=== PATIENT | female | born 1995 | race Caucasian/White ===

== ENCOUNTER 2022-03-25 00:07 | Inpatient (IN) | payer SELFPAY, OTHER ==
[2022-03-25] VITALS (47 sets, daily range): BP systolic 89–116; BP diastolic 47–71; PULSE 73–113; RESP 14–17; TEMP 36.2–37.5; O2SAT 96–100; BMI 24.0
--- NOTE | 2022-03-25 01:13 | HP.PCM.OB_ITS ---
HPI - General General Date of Admission: 03/25/22 HPI Narrative LAMONT JOINER, is a 26 F who presents from [facility] with community center coordinator Desiree Lopez following prolonged labor pattern at 37+5. delayed dilation. 6cm since 1900. She is without known complic ations. labs and testings were declined. A positive blood typing. GBS unknown. intact. no vb/lof. arthur q5 minutes, moderate to palpation. increasing intensity since car-ride to hospital. PFSH PFSH Home Medications Evening [place] per pt 03/25/22 [History Last Taken Unknown] calcium per pt 03/25/22 [History Last Taken Unknown] [id number] 1 mg tablet 1 tab PO DAILY 03/25/22 [History Last Taken 03/24/22 08:00] vitamin K per pt 03/25/22 [History Last Taken Unknown] Allergy/AdvReac Type Severity Reaction Status Date / Time No Known Allergies Allergy Verified 03/25/22 01:19 NST FHR Rate Baby A Baseline: 140 Variability:: Moderate Accelerations:: 15 x 15 Decelerations:: None NST Reactive:: Yes FHR Category:: Category I Uterine Activity:: q3-5 minutes x70 seconds ROS Cardiovascular Cardiovascular: Denies abdominal pain, chest pain, diaphoresis, dyspnea, edema or fatigue Respiratory/Chest Respiratory/Chest: Denies change in mental status, chest congestion, chest tightness, cough, shortness of breath at rest, shortness of breath with exertion, breast mass, breast pain, breast skin changes, breast swelling, change in breast shape or nipple discharge Gastrointestinal Gastrointestinal: Denies diarrhea, hemorrhoids, nausea, vomiting or weight changes Genitourinary Genitourinary: Denies change in urinary stream Musculoskeletal Musculoskeletal: Reports none Integumentary Integumentary: Reports none Neurologic Neurologic: Reports none Psychiatric Psychiatric: Reports none Endocrine Endocrinology: Reports none Hematologic/Lymphatic Hematologic/Lymphatic: Reports none Allergic/Immunologic Allergic/Immunologic: Reports none Vital Signs Vital Signs Vital Signs: 03/25/22 00:22 03/25/22 00:22 03/25/22 00:22 Temperature 99.1 F Pulse Rate 87 Blood Pressure BP Systolic BP Diastolic Pulse Ox 97 03/25/22 00:26 03/25/22 00:26 Temperature Pulse Rate 100 Blood Pressure 114/71 BP Systolic 114 BP Diastolic 71 Pulse Ox Physical Exam Const alert, oriented x3 and no apparent distress General Appearance: cooperative, comfortable and well kempt; Negative for in distress Orientation / Consciousness: awake and oriented to person Exam Limitations: no limitations HEENT normocephalic Mouth: oral and palatal mucosa normal Neck full ROM Chest inspection of chest normal Resp normal respiratory effort Effort and Inspection: able to speak in complete sentences and symmetric chest movement Cardio regular rate Peripheral Pulses: pulses 2+ throughout GI normal to inspection, nondistended, normoactive bowel sounds Inspection: gravid appearance of the vagina normal External Female Exam: normal appearance of the urethra; Negative for external lesion OB / External & Speculum: external exam normal Manual OB Exam: estimated gestational size appropriate and presentation cephalic Uterus Palpation: Negative for uterus tender Extremity normal to inspection Skin no rashes or lesions noted Neuro Motor Exam: strength 5/5 throughout and clonus absent Psych Activity / Motor Behavior: appropriate eye contact Speech: normal speech Labs Labs Labs: No Data to Display Assessment & Plan (1) Spontaneous onset of labor: COMMENT: spontaneous labor at 37+5 pt with CPM care, declined testings and labs sp:Herbert PLAN: Plan admit to L&D -pt with +cervical change from [facility]. plan to re-evaluate cervical exam in 2 hour. if no change will augment with pitocin. -offer position changes and comfort techniques -obtain labs Dr. Thomson updated of admission
[2022-03-25] MEDS: Lactated Ringers 1,000 ML 200 ML IV ×2 (01:30→06:11)
[2022-03-25 02:01] LABS: Absolute Lymphocyte Count 1.39 X10^3/uL (0.83-4.51); Absolute Neutrophil Count 7.5 X10^3/uL (2.0-7.7); Basophil# 0.02 X10^3/uL; Basophil% 0.2 % (0-1); Eosinophil# 0.01 X10^3/uL; Eosinophils% 0.1 % (0-5); Hematocrit 36.5 % (37-47); Hemoglobin 12.7 g/dL (12.0-15.0); Lymphocyte # 1.39 X10^3/ul (0.83-4.51); Lymphocyte % 14.4 % (19-41); Mean Corp Hgb Conc 34.8 g/dL (32-36); Mean Corpuscular Hgb 33.2 pg (27.0-32.0); Mean Corpuscular Volume 95.3 fL (81-99); Monocyte# 0.69 X10^3/uL; Monocyte% 7.1 % (0-10); NRBC Flagged by Analyzer 0 % (0-5); Neutrophil # 7.52 X10^3/uL (2.7-7.7); Neutrophil % 77.8 % (47-70); Platelet Count 203 K/mm3 (150-450); RBC Distribution Width CV 13.2 % (11.6-14.6); RBC Distribution Width SD 46.4 fl (35.1-43.9); Red Blood Count 3.83 M/mm3 (4.2-5.4); White Blood Count 9.7 K/mm3 (4.4-11.0)
[2022-03-25 02:52] LABS: Mucous, Urine 0 SEEN /hpf (<or=2+); Red Blood Cells-Urine 0 SEEN /hpf (0-5); Squamous Epithelial Cells - UA 0 SEEN /hpf (5-10)
[2022-03-25] MEDS: Oxytocin 15 Units/NS 250ml 15 UNITS/250 ML IV.SOLN 2 UNITS IV (02:52)
[2022-03-25 02:53] LABS: Color, Urine Yellow (Yellow); Glucose, Dipstick 50 mg/dl (Normal); Ketone-Dipstick 50 mg/dl (Negative); Leukocyte Esterase-Dipstick 25 /ul (Negative); Nitrite-Dipstick Negative (Negative); Occult Blood-Urine 25 /ul (Negative); Protein-Dipstick 30 mg/dl (Negative); Specific Gravity, Urine 1.015 (1.002-1.030); Urine Bilirubin Dipstick Negative (Negative); Urine Clarity Clear (Clear); Urine Urobilinogen Normal (Normal)
[2022-03-25 03:06] LABS: Rubella IgG Reactive (Nonreactive); Syphilis Antibodies Non-reactive
[2022-03-25 03:12] LABS: Amphetamine Urine VISTA NEGATIVE (<1000 ng/mL); Barbiturate Urine VISTA NEGATIVE (< 200 ng/mL); Benzodiazepine Urine VISTA NEGATIVE (< 200 ng/mL); Cocaine Urine VISTA NEGATIVE (< 300 ng/mL); Ecstacy Urine VISTA NEGATIVE (< 500 ng/mL); Methadone Urine VISTA NEGATIVE (< 300 ng/mL); PCP Urine VISTA NEGATIVE (< 25 ng/mL); THC Urine VISTA NEGATIVE (< 50 ng/mL); Vista UDS pH Range 6
[2022-03-25 03:14] LABS: Bacteria RARE /hpf (None Seen); White Blood Cells 0-5 SEEN /hpf (0-5)
[2022-03-25 03:54] LABS: HIV - WCH Non-Reactive (Nonreactive); Hepatitis B Surface Antigen Non-Reactive (Nonreactive); Hepatitis C Antibody Non-Reactive (Nonreactive)
[2022-03-25 04:22] LABS: Group B Strep DNA By PCR Negative (Negative); Internal Control PASS; Probe Check PASS; Specimen Processing Control PASS
[2022-03-25 05:27] LABS: Chlamydia Trachomatis by PCR Negative (Negative); Neisserai gonorrhoeae by PCR Negative (Negative); Probe Check PASS; Sample Adequacy Control PASS; Specimen Processing Control PASS
[2022-03-25 05:46] LABS: ROM Internal Control Test YES-OK TO RESULT pt. (Internal QC); ROM Patient Test POSITIVE (Negative)
[2022-03-25] MEDS: Acetaminophen 500 MG Tablet PO (05:56)
--- NOTE | 2022-03-25 07:22 | DCINST_ITS ---
Discharge Instructions Diet Discharge Diet: No restrictions Activity Discharge Activity: Return to Normal Activity, May Drive, May Shower and May Take a Tub Bath (in 4 weeks) May resume sexual activity in: 6-8 weeks (after seen by OB provider) Weight Bearing Status: Full weight bearing Lifting Restrictions: none Dressing / Incision Call your doctor if you observe: Fever of 101 or Higher, Inability to urinate, Using more than 1 pad per hour (for more than 2 hours in a row or more), Shortness of breath, Dizziness, Chest pain and - (headache not controlled with tylenol, change in vision) Follow Up Care When: in 6 weeks for visit, call the office to make the appointment. If you had elevated blood pressures call the office to be seen within 1 week. Test Results: Test results from this visit will be discussed in further detail at your follow- up appointment, if applicable. Discharge Plan Admission Admit Date/Time: 03/25/22 00:07 Attending Provider: Chloe Valencia Primary Care Provider: Care Physician,Maggi Primary Discharge Orders/Prescriptions Prescriptions: No Action 1 mg Tablet 1 tab PO DAILY Evening [place] calcium vitamin K Referrals / Follow Up: Care Physician,No Primary [Primary Care Provider] - Disposition Disposition (needs filled in before D/C Order can be placed): Home, Self Care
--- NOTE | 2022-03-25 07:30 | EX.PCM.OBRPT ---
Vaginal Delivery Maternal Presentation Maternal Presentation: Active Labor Type of Induction: Pitocin Operative Information Date of Procedure: 03/25/22 Pre-Operative Diagnosis: Post-Operative Diagnosis: Surgery / Procedure Performed: Spontaneous Vaginal Delivery Estimated Blood Loss: 250 Time of Delivery: 07:06 Findings Description of Procedure: Patient began pushing and delivered the head in the ULYSSES presentation. The head was delivered atraumatically. The anterior and posterior shoulders delivered without complication followed by the rest of the and the infant was placed on the maternal abdomen. Delayed cord clamping was employed for approximately 60 seconds. Cord was clamped and cut and gentle traction was applied to the cord and the placenta delivered spontaneously immediately following it was noted to be intact with three-vessel cord. The perineum and vagina were inspected and small labia tear x2, interrupted sutures placed after lidocaine provided . EBL was 250 cc. Patient and tolerated delivery well. Presentation: ULYSSES Amniotic Membrane Rupture Type: Artificial Time of Membrane Rupture: 0620 Amniotic Fluid Description: Lightly stained meconium Placental Delivery Description: Spontaneous Placenta Disposition: [facility] Cord Vessel Description: 3 Vessels Cord Entanglement: None A Gender: Female (1 minute): 8 (5 minute): 9 Delayed Cord Clamping: Yes Post Vaginal Delivery Medications Given After Delivery: IV Pitocin Episiotomy Description: None Laceration: Vaginal Extension/lac (left labia tear) Procedures Urinary/Genital [id number]: [id number] Vaginal Delivery global pkg (CNM delivery)
[2022-03-25] MEDS: 0.9% Saline Lock 10 ML Syringe IV (08:25)
[2022-03-26] VITALS (8 sets, daily range): BP systolic 103–109; BP diastolic 53–74; PULSE 80–121; RESP 16; TEMP 36.6–36.9; O2SAT 97
--- NOTE | 2022-03-26 08:01 | PCM.DC ---
Discharge Instructions Diet Discharge Diet: No restrictions Activity Discharge Activity: May Not Drive and May Shower May resume sexual activity in: 6-8 weeks (after seen by OB provider) Weight Bearing Status: Full weight bearing Dressing / Incision Call your doctor if your incision/area has: Sudden Increased Bleeding, Increased Pain/ Swelling and Foul Smelling Discharge Call your doctor if you observe: Fever of 101 or Higher, Inability to urinate, Using more than 1 pad per hour (for more than 2 hours in a row or more), Shortness of breath, Dizziness, Chest pain and - (headache not controlled with tylenol, change in vision) Follow Up Care Please Follow Up With: Chloe Valencia CNM When: 6 weeks , please call office to make an appointment. May continue care with Desiree LEWIS. Congratulations on the of your baby! Test Results: Test results from this visit will be discussed in further detail at your follow-up appointment, if applicable. Discharge Plan Admission Admit Date/Time: 03/25/22 00:07 Attending Provider: Chloe Valencia Primary Care Provider: Care Physician,Maggi Primary Discharge Orders/Prescriptions Prescriptions: No Action 1 mg Tablet 1 tab PO DAILY Evening [place] calcium vitamin K Referrals / Follow Up: Care Physician,Maggi Primary [Primary Care Provider] - Disposition Disposition (needs filled in before D/C Order can be placed): Home, Self Care
--- NOTE | 2022-03-26 08:02 | PCM.PN.OB ---
Subjective Subjective Patient doing well without complaints. Tolerating PO. Ambulating and voiding without difficulty. Feeding well. Denies chest pain, shortness of breath, calf pain/swelling, fevers, chills, lightheadedness. Objective Data Objective Data Vital Signs: Vital Signs Temp Pulse Resp BP Pulse Ox O2 Del Method 98.3 F 101 H 16 104/61 99 Room Air 03/26/22 04:29 03/26/22 04:29 03/26/22 04:29 03/26/22 04:29 03/25/22 09:23 03/25/22 15:06 Oxygen Delivery Method Room Air Weight: 158 lb 6.4 oz Body Mass Index (BMI) 24.0 Intake & Output: Intake and Output for Last 24 Hours 03/24/22 03/25/22 03/26/22 23:59 23:59 23:59 Intake Total 1363.59 / 1363.59 Output Total 1900 / 1900 Balance -536.41 / -536.41 Lab / Micro Data Attestation: I reviewed the patient's lab results. Result Diagrams: 03/25/22 01:30 Physical Exam Const alert, oriented x3 and no apparent distress General Appearance: cooperative HEENT normocephalic Eyes PERRL Neck full ROM Lymph Lymphatic: no lymphadenopathy noted Chest inspection of chest normal Nipple/Areola: nipples/areola normal Resp normal respiratory effort, normal air movement and no retractions Cardio regular rate and regular rhythm GI normal to inspection, nondistended, normoactive bowel sounds GI Narrative: fundus firm at u, lochia rubra small amount, no clots Narrative: voiding without difficulty Extremity normal to inspection Neuro oriented x3
--- NOTE | 2022-03-30 13:07 | NURSING ---
Mother had visit with me on last Tuesday and was doing well, talked with Alanis on Tuesday and her milk was in, and baby was voiding and stooling and feeding well.
== END 2022-03-26 13:05 | disposition home or self-care (01) | DRG 807 ==
LOC: WPOUT 00:11 → WP 00:11
PROVIDERS: Admitting Provider Registered Nurse; Visit Provider Registered Nurse
DX: O63.1 Prolonged second stage (of labor) (principal); Z37.0 Single live birth; O70.0 First degree perineal laceration during delivery; O77.0 Labor and delivery complicated by meconium in amniotic fluid; Z3A.37 37 weeks gestation of pregnancy
CPT/HCPCS: 59025; 59050; 80307; 81001; 84112; 85025; 86703; 86762; 86780; 86803; 86850; 86900; 86901; 87081; 87340; 87491; 87591; 87653; 99218; J7120; A4216; G0378